=== PATIENT | female | born 2005 | race Caucasian/White ===

== ENCOUNTER → 2023-12-08 08:39 | Outpatient (CLI) | payer BC, SELFPAY | PROVIDERS: PCP Physician Assistant; Visit Provider Physician Assistant | DX: J02.9 Acute pharyngitis, unspecified (principal) | CPT/HCPCS: 87070 ==

== ENCOUNTER → 2024-02-23 10:49 | Outpatient (CLI) | payer BC, SELFPAY | PROVIDERS: PCP Physician Assistant; Visit Provider Nurse Practitioner Adult Health | DX: Z11.3 Encounter for screening for infections with a predominantly sexual mode of transmission (principal) | CPT/HCPCS: 87491; 87591; 87661 ==

== ENCOUNTER 2024-08-14 15:37 | Emergency (ER) | payer BC, SELFPAY ==
[2024-08-14 15:45] VITALS: BP 137/76; PULSE 81; RESP 18; TEMP 36.4; O2SAT 100; BMI 29.2
--- NOTE | 2024-08-14 16:28 | ED_ITS ---
HPI - Weakness <Penelope Haddad PA-C - Last Filed: 08/14/24 19:06> General Chief complaint: Weakness Stated complaint: lethargic x7 days, sob, confusion Time Seen by Provider: 08/14/24 16:28 History of Present Illness HPI Narrative: 19-year-old female presents today with lethargy x1 week. She resides on [facility], attempted to contact her PCP who referred her to the emergency department. She was seen earlier in the walk-in clinic and she states that she was told ?she was not getting enough sleep?. She reports no recent illness or changes in her overall health otherwise. She is denying any fever, chills, body aches or joint pains. She reports no increase in stress, she is tearful and states she is frustrated because she is ?out of energy? and endorses a little ?brain fog.She denies any issues with memory just seems a little slower overall. She has had no recent travel, she reports no insect bites, no injuries, she has had her childhood vaccinations but not COVID or influenza this season, she reports upper respiratory infection symptoms although occasional cough that is nonproductive. She also endorses ?brain fog?. 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 Her last menstrual cycle was August 12 2024 and she is still on her cycle. History is significant for vertigo, migraine, panic attacks, eczema, that she controls with topical steroids, she does endorse a little flare up pointing to her left anterior wrist but no other areas at this point. 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 and then wake at around 8 or 9:00 a.m. to get ready for work. Now when she comes home from work she sits down at around 5pm and generally falls asleep. She reports no disruption during sleep. She reports no issues with finances, she has no pets, she is currently in a relationship with her male partner which he states is quite good. Only other history is hip surgery when she was 16 back in [place] for a nerve entrapment, and she reports a back surgery to ?go back and remove some scar tissue?, she has no hardware whatsoever, no dental implants, she does wear prescription glasses but reports no changes in her vision. Currently without headache or neck pain or stiffness. She does have a history of COVID, two times total but reports recovering from both infections without any issues. She uses hydroxyzine sparingly as needed for panic attacks, no other sedating medications, no alcohol or illicit drugs. All other systems are reviewed and are negative. Related Data Home Medications Medication Instructions Recorded Confirmed hydroxyzine HCl 25 mg tablet 25 mg PO BID PRN 12/08/23 08/14/24 prednisone 20 mg tablet 20 mg PO DAILY 08/14/24 08/14/24 Previous Rx's Medication Instructions Recorded levonorgestrel 17.5 mcg/24 hr (up 1 device intrauterine ONCE #1 ea 03/15/24 to 5 yrs) 19.5mg intrauterine device (Kyleena) ketoconazole 2 % shampoo 1 applic topical 3XW #120 mL 06/08/24 spironolactone 25 mg tablet 25 mg PO DAILY #60 tabs 06/14/24 Allergies Allergy/AdvReac Type Severity Reaction Status Date / Time No Known Drug Allergies Allergy Verified 08/14/24 14:57 Review of Systems <Penelope Haddad PA-C - Last Filed: 08/14/24 19:06> Review of Systems Narrative: All other systems reviewed and are negative. Patient History <Penelope Haddad PA-C - Last Filed: 08/14/24 19:06> Medical History History of PCOS IUD check up Encounter for IUD insertion Primary oligomenorrhea Encounter for well woman exam with abnormal findings Social History Smoking Status: Never smoker Smoking Status: Never smoker Exam <Penelope Haddad PA-C - Last Filed: 08/14/24 19:06> Initial Vital Signs Initial Vital Signs: Vital Signs Temperature 97.5 F L 08/14/24 15:45 Pulse Rate 81 08/14/24 15:45 Respiratory Rate 18 08/14/24 15:45 Blood Pressure 137/76 08/14/24 15:45 Pulse Oximetry 100 12/23/24 15:45 Oxygen Delivery Method Room Air 08/14/24 15:45 Vital signs reviewed and are normal. Const Other: Somewhat tearful but alert and oriented x4, she endorses frustration, but does smile at times. [facility] Head: normal to inspection, normocephalic, atraumatic and No cyanosis of lips/distal nose Ears: hearing grossly normal bilaterally, external ears normal, TM's normal bilaterally, EAC's normal, mastoids normal and no periauricular adenopathy Nose: external nose normal, nares normal and nasal mucous membranes and turbinates normal Face and sinus: normal facial exam, sinuses nontender and face symmetric Mouth: oral mucosae normal, lip normal, tongue normal and oropharynx normal Teeth and gingiva: dentition normal and gingiva normal Throat: posterior oropharynx normal, tonsils normal and uvula midline Eyes General: Yes appearance normal, both eyes and all related structures Periorbital: periorbital findings normal Eyelids: eyelids normal Conjunctivae: conjunctivae normal Pupils: PERRL and normal by confrontation EOM: EOM intact bilaterally Neck Neck: normal visual inspection, full ROM, no meningeal signs and trachea midline Thyroid: thyroid normal Lymphatic: No lymphadenopathy Chest Chest: normal inspection of the chest Resp Effort & Inspection: normal respiratory effort and able to speak in complete sentences Auscultation: clear to auscultation bilaterally, no rales, no rhonchi and no wheezes Cardio Palpation: normal PMI Rate: regular rate Rhythm: regular rhythm Heart Sounds: no gallops, no murmurs and no rubs GI Inspection: normal to inspection Palpation: soft and no hepatosplenomegaly Percussion: normal to percussion Auscultation: normal bowel sounds Skin General: no rashes or lesions noted, elasticity normal and turgor normal Other: Dry macular rash consistent with eczema on her left anterior wrist no other findings. Neuro Cranial Nerves: CN's II-XI intact bilaterally Cognition: normal cognition Speech: speech normal Gait: normal gait Motor: muscle tone normal throughout, strength 5/5 throughout and no pronator drift Sensory Exam: no sensory deficits noted DTR's: Rt Triceps: 1+, Lt Triceps: 1+, Rt Brachioradialis: 1+, Lt Brachioradialis: 1+, Rt Patellar: 2+, Lt Patellar: 2+, Rt Ankle: 1+ and Lt Ankle: 1+ Extrem Other: Moves all extremities normally, full weightbear, equal strength, sensory is intact, equal pulses. <Mara Bella DO - Last Filed: 08/15/24 03:00> Initial Vital Signs Initial Vital Signs: Vital Signs Temperature 97.5 F L 08/14/24 15:45 Pulse Rate 81 08/14/24 15:45 Respiratory Rate 18 08/14/24 15:45 Blood Pressure 137/76 08/14/24 15:45 Pulse Oximetry 100 08/14/24 15:45 Oxygen Delivery Method Room Air 08/14/24 15:45 Course <Penelpoe Haddad PA-C - Last Filed: 08/14/24 19:06> Reevaluation(s) Reevaluation #1: Vital signs remained normal, I reviewed all of her test results and they are all normal, we discussed potential causes of fatigue thankfully she has a follow up appointment with her PCP in a couple of days. We did discuss potential for long COVID, we talked about mental health and there is no clinical findings to suggest acute depression, but with her frustration that can certainly spiral into a pattern of fatigue as well. Vital Signs Vital signs: Vital Signs - 8 hr 08/14/24 19:00 Pulse Rate 80 Respiratory Rate 18 Blood Pressure 113/75 Pulse Oximetry 100 <Mara Bella DO - Last Filed: 08/15/24 03:00> Vital Signs Vital signs: Vital Signs - 8 hr 08/14/24 19:00 Pulse Rate 80 Respiratory Rate 18 Blood Pressure 113/75 Pulse Oximetry 100 MDM - Weakness <Penelope Haddad PA-C - Last Filed: 08/14/24 19:06> Lab Data Lab results narrative: Urine hCG is negative, urinalysis is within normal limits, she does have some blood but she is currently on her menstrual cycle, CBC normal, CMP normal, TSH, respiratory panel 08/14/24 16:45 08/14/24 16:45 Labs: Lab Results 08/14/24 Range/Units 16:45 WBC 8.3 (4.5-11.0) X10^3/uL RBC 4.84 (4.0-5.2) X10^6/uL Hgb 14.0 (12.0-16.0) g/dL Hct 41.6 (36-46) % MCV 85.9 (80-100) fL MCH 29.0 (26-34) PG MCHC 33.8 (30-36) % RDW 13.7 (11.6-14.8) % Plt Count 174 (150-400) X10^3/uL Neut % (Auto) 57.7 (50-75) % Lymph % (Auto) 33.6 (25-40) % [place] % (Auto) 6.7 (3-14) % Eos % (Auto) 1.5 L (2-4) % Baso % (Auto) 0.5 (0-2) % Neut # (Auto) 4800 (7662-1765) /uL Lymph # (Auto) 2800 (3759-7693) /uL [place] # (Auto) 600 (0-900) /uL Eos # (Auto) 100 (0-450) /uL Baso # (Auto) 0 (0-100) /uL Sodium 140 (137-145) mmol/L Potassium 4.0 (3.4-5.1) mmol/L Chloride 106 (98-107) mmol/L Carbon Dioxide 26 (22-32) mmol/L BUN 13 (7-17) mg/dL Creatinine 0.74 (0.52-1.04) mg/dL Estimated GFR > 60 (>60) mL/min BUN/Creatinine Ratio 17.6 (6-22) Glucose 83 (70-100) mg/dL Calcium 9.4 (8.4-10.2) mg/dL Total Bilirubin 0.4 (0.2-1.3) mg/dL AST 28 (14-36) IU/L ALT 22 (<35) IU/L Alkaline Phosphatase 96 (38-126) U/L Total Protein 7.7 (6.3-8.2) g/dL Albumin 4.6 (3.5-5.0) g/dL Globulin 3.1 (1.7-4.1) g/dL Albumin/Globulin Ratio 1.5 (1.0-2.8) TSH 1.87 (0.47-4.68) uIU/mL Urine Color Yellow Urine Appearance Cloudy Urine pH 7.0 (4.5-8.0) Ur Specific [place] 1.020 (1.000-1.035) Urine Protein 1+ H (Negative) Urine Glucose (UA) Negative (Negative) g/dL Urine Ketones Trace H (NEGATIVE) Urine Occult Blood 3+ H (Negative) Urine Nitrate Negative (Negative) Urine Bilirubin 1+ H (NEGATIVE) Ur Bilirubin Confirm Negative (Negative) Urine Urobilinogen 1.0 (0.2) E.U./dL Ur Leukocyte Esterase Trace H (NEGATIVE) Urine RBC 10-30/hpf H (0-5/HPF) Urine WBC 5-10/hpf H (0-5/HPF) Ur Squamous Epith Cells 5-10 /hpf H (0-5/HPF) Amorphous Sediment 1+ Urine Bacteria Few (2-10) H (None) Ur Culture Indicated? Specimen cultured Vol Urine Centrifuged 10ml (spun) Urine Test Negative (Negative) Chlamy pneumoniae PCR Not detected (Not Detect) Adenovirus (PCR) Not detected (Not Detect) B. pertussis DNA (PCR) Not detected (Not Detect) B.parapertussis DNA PCR Not detected (Not Detecte) Coronavirus OC43 (PCR) Not detected (Not Detect) Coronavirus HKU1 (PCR) Not detected (Not Detect) Coronavirus 229E (PCR) Not detected (Not Detect) SARS-CoV-2 (PCR) Not detected (Not Detecte) Coronavirus NL63 (PCR) Not detected (Not Detect) Human Metapneumovir PCR Not detected (Not Detect) Influenza Type A (PCR) Not detected (Not Detect) Influenza Type B (PCR) Not detected (Not Detect) M. pneumoniae (PCR) Not detected (Not Detect) Parainfluenza 1 (PCR) Not detected (Not Detect) Parainfluenza 2 (PCR) Not detected (Not Detect) Parainfluenza 3 (PCR) Not detected (Not Detect) Parainfluenza 4 (PCR) Not detected (Not Detect) RSV (PCR) Not detected (Not Detect) Entero/Rhino (PCR) Not detected (Not Detect) ECG Data Interpretation: Twelve lead ECG shows a normal sinus rhythm with sinus arrhythmia, ventricular rate of 78, normal RI interval, no ST segment changes, no P or T-wave abnormalities, normal axis, basically a sinus pause. MDM Narrative Medical decision making narrative: No acute findings on clinical examination, her vital signs are normal, postural vital signs are also normal, CBC CMP are normal, TSH normal. She is currently on her menstrual cycle but no clinical findings to suggest anemia, her ECG is also normal. Urinalysis did have some blood but again she is on her menses. There was some bacteria seen on microscopy so it was reflexed to culture and sensitivities, those results are pending. She has no clinical complaints to suggest a UTI, I did advise her though we would contact her with those culture results and if she needs medication they will be prescribed. Her comprehensive respiratory panel was negative. We did discuss the possibility of long COVID thankfully she has a follow up appointment with her PCP in a couple of days on [facility]. There are many causes of fatigue and we have done most of the workup but there are still things to consider that can be obtained/managed as an outpatient. We did discuss red flag warning signs and to seek medical attention if anything changes or worsens. I have encouraged her to keep a journal to see if there are any environmental factors that we may have missed, any issues at home, any changes or any subtle patterns that she can share with her PCP. <Mara Bella, DO - Last Filed: 08/15/24 03:00> Lab Data Labs: Lab Results 08/14/24 Range/Units 16:45 WBC 8.3 (4.5-11.0) X10^3/uL RBC 4.84 (4.0-5.2) X10^6/uL Hgb 14.0 (12.0-16.0) g/dL Hct 41.6 (36-46) % MCV 85.9 (80-100) fL MCH 29.0 (26-34) PG MCHC 33.8 (30-36) % RDW 13.7 (11.6-14.8) % Plt Count 174 (150-400) X10^3/uL Neut % (Auto) 57.7 (50-75) % Lymph % (Auto) 33.6 (25-40) % [place] % (Auto) 6.7 (3-14) % Eos % (Auto) 1.5 L (2-4) % Baso % (Auto) 0.5 (0-2) % Neut # (Auto) 4800 (9876-4315) /uL Lymph # (Auto) 2800 (7686-5949) /uL [place] # (Auto) 600 (0-900) /uL Eos # (Auto) 100 (0-450) /uL Baso # (Auto) 0 (0-100) /uL Sodium 140 (137-145) mmol/L Potassium 4.0 (3.4-5.1) mmol/L Chloride 106 (98-107) mmol/L Carbon Dioxide 26 (22-32) mmol/L BUN 13 (7-17) mg/dL Creatinine 0.74 (0.52-1.04) mg/dL Estimated GFR > 60 (>60) mL/min BUN/Creatinine Ratio 17.6 (6-22) Glucose 83 (70-100) mg/dL Calcium 9.4 (8.4-10.2) mg/dL Total Bilirubin 0.4 (0.2-1.3) mg/dL AST 28 (14-36) IU/L ALT 22 (<35) IU/L Alkaline Phosphatase 96 (38-126) U/L Total Protein 7.7 (6.3-8.2) g/dL Albumin 4.6 (3.5-5.0) g/dL Globulin 3.1 (1.7-4.1) g/dL Albumin/Globulin Ratio 1.5 (1.0-2.8) TSH 1.87 (0.47-4.68) uIU/mL Urine Color Yellow Urine Appearance Cloudy Urine pH 7.0 (4.5-8.0) Ur Specific [place] 1.020 (1.000-1.035) Urine Protein 1+ H (Negative) Urine Glucose (UA) Negative (Negative) g/dL Urine Ketones Trace H (NEGATIVE) Urine Occult Blood 3+ H (Negative) Urine Nitrate Negative (Negative) Urine Bilirubin 1+ H (NEGATIVE) Ur Bilirubin Confirm Negative (Negative) Urine Urobilinogen 1.0 (0.2) E.U./dL Ur Leukocyte Esterase Trace H (NEGATIVE) Urine RBC 10-30/hpf H (0-5/HPF) Urine WBC 5-10/hpf H (0-5/HPF) Ur Squamous Epith Cells 5-10 /hpf H (0-5/HPF) Amorphous Sediment 1+ Urine Bacteria Few (2-10) H (None) Ur Culture Indicated? Specimen cultured Vol Urine Centrifuged 10ml (spun) Urine Test Negative (Negative) Chlamy pneumoniae PCR Not detected (Not Detect) Adenovirus (PCR) Not detected (Not Detect) B. pertussis DNA (PCR) Not detected (Not Detect) B.parapertussis DNA PCR Not detected (Not Detecte) Coronavirus OC43 (PCR) Not detected (Not Detect) Coronavirus HKU1 (PCR) Not detected (Not Detect) Coronavirus 229E (PCR) Not detected (Not Detect) SARS-CoV-2 (PCR) Not detected (Not Detecte) Coronavirus NL63 (PCR) Not detected (Not Detect) Human Metapneumovir PCR Not detected (Not Detect) Influenza Type A (PCR) Not detected (Not Detect) Influenza Type B (PCR) Not detected (Not Detect) M. pneumoniae (PCR) Not detected (Not Detect) Parainfluenza 1 (PCR) Not detected (Not Detect) Parainfluenza 2 (PCR) Not detected (Not Detect) Parainfluenza 3 (PCR) Not detected (Not Detect) Parainfluenza 4 (PCR) Not detected (Not Detect) RSV (PCR) Not detected (Not Detect) Entero/Rhino (PCR) Not detected (Not Detect) Discharge Plan Departure Patient Disposition: Home Clinical Impression: Fatigue Qualifiers: Fatigue type: unspecified Qualified Code(s): R53.83 - Other fatigue Instructions: DI for Fatigue Activity Restrictions/Additional Instructions: It was nice to meet you, your lab work today was normal, this includes her complete blood count, chemistry panel which includes your liver and kidney all of your salts, your thyroid hormone were no also normal, the only thing pending is a urine culture as your urinalysis did show a little bit of bacteria so they will attempt to grow it in the lab, if you do have an infection 1 of our nurses will reach out to you in the next 48 hours or so if an antibiotic is warranted. Your EKG was also normal. Please do follow up with your PCP as scheduled and of course I recommend keeping a journal to see if there are any environmental factors, any subtle changes or patterns that we did not detect today, there is always a chance of long COVID there so much we do not know about this. If you have any new worrisome symptoms or concerns please do not hesitate to return to the emergency department. I hope you have a good holiday. Prescriptions: No Action prednisone 20 mg tablet 20 mg PO DAILY hydroxyzine HCl 25 mg tablet 25 mg PO BID PRN Kyleena 17.5 mcg/24 hrs (5 yrs) 19.5 mg intrauterine device 1 device intrauterine ONCE Qty: 1 0RF Rx Instructions: Due for removal no later than 5 years from now. spironolactone 25 mg tablet 25 mg PO DAILY Qty: 60 6RF ketoconazole 2 % shampoo 1 applic topical 3XW Qty: 120 0RF Referrals: Marcelina Crowley PA-C [Primary Care Provider] - Stand Alone Forms: Patient Portal/API/Survey ED Sign-out <Mara Bella DO - Last Filed: 08/15/24 03:00> Cosign ED Attending Cosignature Attestation: I was available for consultation.
[2024-08-14 17:30] VITALS: BP 111/75; BP 113/76; PULSE 75; PULSE 85
[2024-08-14 17:35] VITALS: BP 111/75; PULSE 85; RESP 16; TEMP 36.7; O2SAT 100
[2024-08-14 17:35] LABS: Add Manual Diff / Slide Review NO; Basophils Absolute Auto 0 /uL (0-100); Basophils Percent Auto 0.5 % (0-2); Eosinophils Absolute Auto 100 /uL (0-450); Eosinophils Percent Auto 1.5 % (2-4); Hematocrit 41.6 % (36-46); Lymphocytes Absolute Auto 2800 /uL (1100-4500); Lymphocytes Percent Auto 33.6 % (25-40); Mean Corpuscular HGB Conc 33.8 % (30-36); Mean Corpuscular Volume 85.9 fL (80-100); Monocytes Absolute Auto 600 /uL (0-900); Monocytes Percent Auto 6.7 % (3-14); Neutrophils Absolute Auto 4800 /uL (1500-7000); Neutrophils Percent Auto 57.7 % (50-75); Platelet Count 174 X10^3/uL (150-400); Red Blood Cell Count 4.84 X10^6/uL (4.0-5.2); Red Cell Distribution Width 13.7 % (11.6-14.8); White Blood Cell Count 8.3 X10^3/uL (4.5-11.0)
--- NOTE | 2024-08-14 17:40 | EKG_ITS ---
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
[2024-08-14 17:44] LABS: Alanine Aminotransferase 22 IU/L (<35); Albumin 4.6 g/dL (3.5-5.0); Albumin Globulin Ratio 1.5 (1.0-2.8); Alkaline Phosphatase 96 U/L (38-126); Aspartate Aminotransferase 28 IU/L (14-36); BUN Creatinine Ratio 17.6 (6-22); Bilirubin Total 0.4 mg/dL (0.2-1.3); Blood Urea Nitrogen 13 mg/dL (7-17); Calcium 9.4 mg/dL (8.4-10.2); Carbon Dioxide 26 mmol/L (22-32); Chloride 106 mmol/L (98-107); Estimated Glomerular Filt Rate > 60 mL/min (>60); Globulin 3.1 g/dL (1.7-4.1); Glucose 83 mg/dL (70-100); HEMOLYSIS < 15 (0-50); Sodium 140 mmol/L (137-145); Total Protein 7.7 g/dL (6.3-8.2)
[2024-08-14 18:06] LABS: Appearance Urine UA CLOUDY; Bilirubin Urine UA 1+ (NEGATIVE); Color Urine UA YELLOW; Glucose Urine UA NEGATIVE (Negative); Ketones Urine UA TRACE (NEGATIVE); Leukocyte Esterase Urine UA TRACE (NEGATIVE); Nitrite Urine UA NEGATIVE (Negative); Occult Blood Urine UA 3+ (Negative); Protein Urine UA 1+ (Negative)
[2024-08-14 18:16] LABS: Amorphous Sediment Urine 1+; Bacteria Urine Few (2-10); Culture Indicated Urine Specimen Cultured; Ictotest Urine Negative (Negative); RBC Urine 10-30/HPF (0-5/HPF); Squamous Epithelial Cell Urine 5-10 /HPF (0-5/HPF); Urine Volume 10mL (spun); WBC Urine 5-10/HPF (0-5/HPF)
[2024-08-14 18:17] LABS: Pregnancy Test Urine Negative (Negative)
[2024-08-14 18:25] LABS: TSH w/ Reflex to FT4 1.87 uIU/mL (0.47-4.68)
[2024-08-14 18:28] LABS: Adenovirus Not Detected (Not Detect); B. parapertussis Not Detected (Not Detecte); Bordetella pertussis Not Detected (Not Detect); Chlamydophila pneumoniae Not Detected (Not Detect); Coronavirus 229E Not Detected (Not Detect); Coronavirus HKU1 Not Detected (Not Detect); Coronavirus NL 63 Not Detected (Not Detect); Coronavirus OC43 Not Detected (Not Detect); Human Metapneumovirus Not Detected (Not Detect); Human Rhinovirus/Enterovirus Not Detected (Not Detect); Influenza A Not Detected (Not Detect); Influenza B Not Detected (Not Detect); Mycoplasma pneumoniae Not Detected (Not Detect); Parainfluenza Virus 1 Not Detected (Not Detect); Parainfluenza Virus 2 Not Detected (Not Detect); Parainfluenza Virus 3 Not Detected (Not Detect); Parainfluenza Virus 4 Not Detected (Not Detect); Respiratory Syncytial Virus Not Detected (Not Detect); SARS- CoV-2 Not Detected (Not Detecte)
[2024-08-14 19:00] VITALS: BP 113/75; PULSE 80; RESP 18; O2SAT 100
== END 2024-08-14 19:16 | disposition home or self-care (01) ==
PROVIDERS: Emergency Provider Physician Assistant Medical; PCP Physician Assistant
DX: R53.83 Other fatigue (principal)
CPT/HCPCS: 36415; 80053; 81001; 81025; 84443; 85025; 87086; 87633; 93005; 99283; 99284

== ENCOUNTER → 2024-08-24 13:03 | Outpatient (CLI) | payer BC, SELFPAY ==
[2024-08-24 20:08] LABS: Add Manual Diff / Slide Review NO; Basophils Absolute Auto 100 /uL (0-100); Basophils Percent Auto 0.9 % (0-2); Eosinophils Absolute Auto 100 /uL (0-450); Eosinophils Percent Auto 1.7 % (2-4); Hematocrit 42.1 % (36-46); Lymphocytes Absolute Auto 2900 /uL (1100-4500); Lymphocytes Percent Auto 42.2 % (25-40); Mean Corpuscular HGB Conc 33.2 % (30-36); Mean Corpuscular Hemoglobin 28.5 PG (26-34); Monocytes Absolute Auto 400 /uL (0-900); Monocytes Percent Auto 6.2 % (3-14); Neutrophils Absolute Auto 3400 /uL (1500-7000); Platelet Count 167 X10^3/uL (150-400); Red Blood Cell Count 4.89 X10^6/uL (4.0-5.2); Red Cell Distribution Width 13.2 % (11.6-14.8)
[2024-08-24 21:07] LABS: Erythrocyte Sedimentation Rate 8 MM/HR (0-20)
[2024-08-26 05:12] LABS: RPR Screen Non Reactive (Non Reactive)
== END ==
PROVIDERS: PCP Physician Assistant; Visit Provider Physician Assistant
DX: R53.83 Other fatigue (principal); R21 Rash and other nonspecific skin eruption
CPT/HCPCS: 85025; 85651; 86592